=== PATIENT | male | born 1995 | race Caucasian/White ===

== ENCOUNTER 2024-03-01 23:35 | Emergency (ER) | payer BC, OTHER ==
[2024-03-01 23:45] VITALS: BP 149/70; PULSE 92; RESP 18; TEMP 98.4; BMI 40.6
[2024-03-02] MEDS ORDERED: ONDANSETRON 4 MG/2 ML VIAL ONE (00:27)
[2024-03-02] MEDS: ONDANSETRON 4 MG/2 ML VIAL IVPUSH ONE (00:44)
[2024-03-02] MEDS: SODIUM CHLORIDE 0.9% 500 ML INFUS.BAG IV ONE (00:44)
[2024-03-02 01:33] LABS: BASO % 0.6 % (0-2.0); EOS % 2.6 % (0-4.5); HEMATOCRIT 40.8 % (35.4-49); HEMOGLOBIN 13.4 GM/dL (11.7-16.9); LYMPH % 24.5 % (8-40); MCH 25.3 pg (25.7-33.7); MCHC 32.8 g/dl (32.0-35.9); MEAN CELL VOLUME 77.1 fl (80-96); MEAN PLT VOLUME 6.7 fl (7.5-11.1); MONO % 4.8 % (3.8-10.2); NEUT % 67.5 % (42.8-82.8); PLATELET COUNT 375 10^3/uL (134-434); RBC 5.29 M/mm3 (4.00-5.60); RDW 15.5 % (11.9-15.9); WHITE BLOOD COUNT 10.9 K/mm3 (4.0-10.0)
[2024-03-02 01:48] LABS: ALBUMIN 4.2 g/dl (3.4-5.0); BLOOD UREA NITROGEN 13.4 mg/dL (7-18)
[2024-03-02 01:49] LABS: CALCIUM 8.4 mg/dL (8.5-10.1)
[2024-03-02 01:51] LABS: CREATININE 0.9 mg/dL (0.55-1.3)
[2024-03-02 01:52] LABS: BILIRUBIN,TOTAL 0.3 mg/dL (0.2-1); TOT PROT 7.7 g/dl (6.4-8.2)
[2024-03-02 02:41] LABS: HIV INTERPRETATION NEGATIVE (NEGATIVE)
== END 2024-03-02 02:55 | disposition home or self-care (01) ==
LOC: JER 23:35
PROC: 3E033GC Introduction of Other Therapeutic Substance into Peripheral Vein, Percutaneous Approach (ICD-10-PCS; principal; 2024-03-02)
DX: F10.920 Alcohol use, unspecified with intoxication, uncomplicated (principal); Y90.8 Blood alcohol level of 240 mg/100 ml or more; R11.2 Nausea with vomiting, unspecified
CPT/HCPCS: 36415; 80053; 80307; 83690; 85025; 86803; 87389; 99284-25